=== PATIENT | female | born 1970 | race African-American/Black ===

== ENCOUNTER → 2023-06-21 08:58 | Outpatient (CLI) | payer OTHER, SELFPAY ==
--- NOTE | ~2023-06-21 | XR_ITS ---
EXAMINATION: XR hip LT min 2V DATE: 06/21/2023 09:22 INDICATION: Left hip pain. TECHNIQUE: 3 views of left hip were obtained. COMPARISON: None. FINDINGS: Bone alignment is normal. No fracture. There is mild left hip osteoarthritis. There are melyssa cified uterine fibroids. IMPRESSION: 1. Mild left hip osteoarthritis. Reviewed, dictated and finalized at location E.
== END ==
PROVIDERS: PCP Nurse Practitioner Family; Visit Provider Nurse Practitioner Family
DX: D25.9 Leiomyoma of uterus, unspecified (principal); M16.12 Unilateral primary osteoarthritis, left hip
CPT/HCPCS: 73502